=== PATIENT | male | born 1970 | race Caucasian/White ===

== ENCOUNTER 2023-10-31 14:57 | Emergency (ER) | payer OTHER ==
[~2023-10-31] VITALS: Ht 185.4 cm; Wt 146.9 kg
[2023-10-31 16:21] VITALS: BP 146/77; PULSE 93; RESP 18; TEMP 98.8; O2SAT 95
== END 2023-10-31 17:07 | disposition home or self-care (01) ==
LOC: ER 14:57
DX: S63.592A Other specified sprain of left wrist, initial encounter (principal); S00.83XA Contusion of other part of head, initial encounter; S00.01XA Abrasion of scalp, initial encounter; S06.891A Other specified intracranial injury with loss of consciousness of 30 minutes or less, initial encounter; V86.69XA Passenger of other special all-terrain or other off-road motor vehicle injured in nontraffic accident, initial encounter; Y93.89 Activity, other specified; Y92.89 Other specified places as the place of occurrence of the external cause; Y99.0 Civilian activity done for income or pay
CPT/HCPCS: 70450; 73110